=== PATIENT | male | born 1955 | race Hispanic/Latino ===

== ENCOUNTER 2019-03-12 09:14 | Day surgery (SDC) | payer BC ==
[2019-03-08 09:05] VITALS: BMI 27.1
[2019-03-12] MEDS ORDERED: Sodium Chloride 0.9% 1,000 ML IV SCH (09:45)
[2019-03-12 10:25] VITALS: O2SAT 99
[2019-03-12] MEDS ORDERED: Propofol 10 mg/ml Inj (20 ML) ONE (11:28)
[2019-03-12 15:14] VITALS: BP 132/78; PULSE 58; RESP 18; TEMP 98
== END 2019-03-12 13:23 | disposition home or self-care (01) ==
LOC: ENDO 09:14
PROVIDERS: ATTEND Internal Medicine Gastroenterology
DX: K20.9 Esophagitis, unspecified (principal); K25.9 Gastric ulcer, unspecified as acute or chronic, without hemorrhage or perforation; K26.9 Duodenal ulcer, unspecified as acute or chronic, without hemorrhage or perforation; K29.70 Gastritis, unspecified, without bleeding; K29.80 Duodenitis without bleeding
CPT/HCPCS: 43239; 88305; 88312; 88342; J2001; J2704; J7030; J7040